=== PATIENT | male | born 1940 | race Caucasian/White ===

== ENCOUNTER → 2020-08-17 | Outpatient (CLI) | payer MEDICARE ==
[~2020-08-17] MED LIST: REGADENOSON 0.4 MG/5 ML SYRINGE ONE
== END | disposition home or self-care (01) ==
LOC: CFH 12:01
PROVIDERS: ATTEND Internal Medicine Cardiovascular Disease
DX: I35.8 Other nonrheumatic aortic valve disorders (principal); I10 Essential (primary) hypertension; I25.10 Atherosclerotic heart disease of native coronary artery without angina pectoris; I25.89 Other forms of chronic ischemic heart disease; E78.5 Hyperlipidemia, unspecified; E11.9 Type 2 diabetes mellitus without complications
CPT/HCPCS: 78452; 93017; 93306; A9502; J2785

== ENCOUNTER 2021-06-23 14:15 | Outpatient (CLI) | payer MEDICARE ==
[2021-06-23] MEDS ORDERED: ATOR20TA37 PO (14:47)
[2021-06-23] MEDS ORDERED: METF10007 PO (14:47)
[2021-06-23] MEDS ORDERED: lisinopril/hctz PO (14:47)
== END 2021-06-23 23:59 | disposition home or self-care (01) ==
LOC: STAR 14:15
PROVIDERS: ATTEND Urology
DX: Z01.818 Encounter for other preprocedural examination (principal); N40.1 Benign prostatic hyperplasia with lower urinary tract symptoms; R94.31 Abnormal electrocardiogram [ECG] [EKG]
CPT/HCPCS: 93005

== ENCOUNTER 2021-06-29 11:35 | Inpatient (IN) | payer MEDICARE ==
[~2021-06-29] VITALS: Ht 185.4 cm; Wt 88.5 kg
[~2021-06-29 11:35] MED LIST changes: +ATOR20TA37 PO; +METF10007 PO; -REGADENOSON 0.4 MG/5 ML SYRINGE ONE; +lisinopril/hctz PO
[2021-06-29] MEDS ORDERED: CHLORHEXIDINE 15 ML UDC PO ONE (12:00)
[2021-06-29] MEDS ORDERED: LACTATED RINGERS 1,000 ML IV SCH (12:00)
[2021-06-29 12:58] LABS: ANION GAP 6 mmol/L (5-15); CALCIUM 9.2 mg/dL (8.5-10.1); CHLORIDE 96 mmol/L (98-107); CREATININE 0.97 mg/dL (0.7-1.3)
[2021-06-29] MEDS ORDERED: FENTANYL PF 100 MCG/2ML ONE ×4 (13:26→15:03)
[2021-06-29] MEDS ORDERED: EPHEDRINE 50 MG/ML, 1ML ONE ×2 (13:51)
[2021-06-29] MEDS ORDERED: ONDANSETRON 2MG/ML, 2ML ONE (13:51)
[2021-06-29] MEDS ORDERED: PROPOFOL 10 MG/ML, 20ML ONE (13:51)
[2021-06-29] MEDS ORDERED: DEXAMETHASONE 4 MG/ML, 1ML ONE (13:51)
[2021-06-29] MEDS ORDERED: CEFAZOLIN 1,000 MG ONE (13:51)
[2021-06-29] MEDS ORDERED: LABETALOL 5MG/ML, 20ML ONE (14:45)
[2021-06-29] MEDS: LABETALOL 5MG/ML, 20ML IV PRN ×3 (14:49→15:28)
[2021-06-29] MEDS ORDERED: HYDROmorphone 1 MG/ML, 1ML INJ IVPush PRN (15:00)
[2021-06-29] MEDS ORDERED: ONDANSETRON 2MG/ML, 2ML IVPush PRN (15:00)
[2021-06-29] MEDS ORDERED: ACETAMINOPHEN 325 MG TABLET PO PRN ×2 (15:00→18:00)
[2021-06-29] MEDS ORDERED: FENTANYL PF 100 MCG/2ML IV PRN (15:00)
[2021-06-29] MEDS ORDERED: EPHEDRINE 50 MG/ML, 1ML IVPush PRN (15:00)
[2021-06-29] MEDS ORDERED: LABETALOL 5MG/ML, 20ML IV PRN (15:00)
[2021-06-29] MEDS ORDERED: OXYcodone 5 MG/5 ML ORAL.SOL UDC PO PRN (15:00)
[2021-06-29] MEDS ORDERED: PROMETHAZINE 25 MG/ML, 1ML IVPush PRN (15:00)
[2021-06-29] MEDS ORDERED: OPIUM/BELLADONNA SUPP.RECT 16.2-30 MG ONE (15:14)
[2021-06-29] MEDS ORDERED: OPIUM/BELLADONNA SUPP.RECT 16.2-30 MG PR PRN ×2 (15:30→18:00)
[2021-06-29] MEDS ORDERED: hydrALAzine 20 MG/ML, 1ML ONE (15:32)
[2021-06-29] MEDS: hydrALAzine 20 MG/ML, 1ML IV PRN ×3 (15:42→16:08)
[2021-06-29] MEDS ORDERED: ONDANSETRON 2MG/ML, 2ML IV PRN (18:00)
[2021-06-29] MEDS ORDERED: HYDROcodone/APAP 5/325 TABLET PO PRN ×2 (18:00→22:00)
[2021-06-29] MEDS ORDERED: AMLODIPINE 5 MG TABLET PO ONE (19:00)
[2021-06-29] MEDS ORDERED: OXYBUTYNIN CHLORIDE 5 MG TABLET PO PRN (19:00)
[2021-06-29] MEDS ORDERED: PHENAZOPYRIDINE 200 MG TABLET PO PRN (19:00)
[2021-06-29 20:22] VITALS: BP 177/81
[2021-06-29] MEDS: ATORVASTATIN 20 MG TABLET PO SCH (21:00)
[2021-06-29] MEDS: CEFAZOLIN PMX 1GM/50ML 50 ML IV SCH (21:00)
[2021-06-29] MEDS: INSULIN REGULAR 100 UNITS/ML, 3ML VIAL SQ-INSULIN SCH (22:12)
[2021-06-30 00:05] VITALS: BP 132/75
[2021-06-30] MEDS: SODIUM CHLORIDE 0.9% 1,000 ML IV SCH ×2 (01:50→22:21)
[2021-06-30 03:55] VITALS: BP 161/82
[2021-06-30] MEDS: CEFAZOLIN PMX 1GM/50ML 50 ML IV SCH (05:08)
[2021-06-30 06:00] LABS: CHLORIDE 95 mmol/L (98-107)
[2021-06-30 06:05] LABS: ANION GAP 8 mmol/L (5-15); CALCIUM 9.3 mg/dL (8.5-10.1); CREATININE 0.87 mg/dL (0.7-1.3)
[2021-06-30 07:15] VITALS: BP 182/83
[2021-06-30] MEDS: INSULIN REGULAR 100 UNITS/ML, 3ML VIAL SQ-INSULIN SCH ×4 (07:22→20:41)
[2021-06-30] MEDS: LISINOPRIL 20 MG TABLET PO SCH (07:22)
[2021-06-30] MEDS: metFORMIN 500 MG TABLET PO SCH ×2 (07:23→16:51)
[2021-06-30] MEDS: HYDROCHLOROTHIAZIDE 12.5 MG CAPSULE PO SCH (07:33)
[2021-06-30 13:53] VITALS: BP 143/66
[2021-06-30 19:53] VITALS: BP 150/70
[2021-06-30] MEDS: ATORVASTATIN 20 MG TABLET PO SCH (20:35)
[2021-07-01 00:37] VITALS: BP 137/76
[2021-07-01] MEDS: INSULIN REGULAR 100 UNITS/ML, 3ML VIAL SQ-INSULIN SCH ×4 (06:27→20:54)
[2021-07-01 07:10] VITALS: BP 164/80
[2021-07-01] MEDS: metFORMIN 500 MG TABLET PO SCH ×2 (08:24→17:00)
[2021-07-01] MEDS: HYDROCHLOROTHIAZIDE 12.5 MG CAPSULE PO SCH (08:25)
[2021-07-01] MEDS: LISINOPRIL 20 MG TABLET PO SCH (08:25)
[2021-07-01 12:53] VITALS: BP 131/75
[2021-07-01] MEDS ORDERED: CHLORHEXIDINE 15 ML UDC ONE (13:56)
[2021-07-01] MEDS ORDERED: FENTANYL PF 100 MCG/2ML ONE (14:24)
[2021-07-01] MEDS ORDERED: CHLORHEXIDINE 15 ML UDC PO ONE (14:30)
[2021-07-01] MEDS ORDERED: HYDROmorphone 1 MG/ML, 1ML INJ IVPush PRN (15:00)
[2021-07-01] MEDS ORDERED: PROMETHAZINE 25 MG SUPP PR PRN (15:00)
[2021-07-01] MEDS ORDERED: FENTANYL PF 100 MCG/2ML IV PRN (15:00)
[2021-07-01] MEDS ORDERED: METOPROLOL 1 MG/ML, 5ML IV PRN ×3 (15:00→15:55)
[2021-07-01] MEDS ORDERED: hydrALAzine 20 MG/ML, 1ML IV PRN (15:00)
[2021-07-01] MEDS ORDERED: ACETAMINOPHEN 325 MG TABLET PO PRN (15:00)
[2021-07-01] MEDS ORDERED: ONDANSETRON 2MG/ML, 2ML IVPush PRN (15:00)
[2021-07-01] MEDS ORDERED: PROMETHAZINE 25 MG/ML, 1ML IVPush PRN (15:00)
[2021-07-01] MEDS ORDERED: OXYcodone 5 MG/5 ML ORAL.SOL UDC PO PRN (15:00)
[2021-07-01] MEDS ORDERED: LABETALOL 5MG/ML, 20ML IV PRN (15:00)
[2021-07-01] MEDS ORDERED: OPIUM/BELLADONNA SUPP.RECT 16.2-30 MG ONE (15:29)
[2021-07-01] MEDS ORDERED: OPIUM/BELLADONNA SUPP.RECT 16.2-30 MG PR PRN ×2 (15:30)
[2021-07-01] MEDS ORDERED: LABETALOL 5MG/ML, 20ML ONE (15:47)
[2021-07-01] MEDS: LABETALOL 5MG/ML, 20ML IV PRN (15:56)
[2021-07-01 20:16] VITALS: BP 123/60
[2021-07-01] MEDS: ATORVASTATIN 20 MG TABLET PO SCH (20:34)
[2021-07-01] MEDS: SODIUM CHLORIDE 0.9% 1,000 ML IV SCH (22:08)
[2021-07-02 00:38] VITALS: BP 106/66
[2021-07-02 04:08] VITALS: BP 122/74
[2021-07-02 07:10] VITALS: BP 162/92
[2021-07-02] MEDS: HYDROCHLOROTHIAZIDE 12.5 MG CAPSULE PO SCH (08:19)
[2021-07-02] MEDS: metFORMIN 500 MG TABLET PO SCH (08:19)
[2021-07-02] MEDS: INSULIN REGULAR 100 UNITS/ML, 3ML VIAL SQ-INSULIN SCH ×2 (08:19→11:09)
[2021-07-02] MEDS: LISINOPRIL 20 MG TABLET PO SCH (08:20)
[2021-07-02 09:18] VITALS: BP 128/64
[2021-07-02 12:19] VITALS: BP 132/68
== END 2021-07-02 13:07 | disposition home or self-care (01) | DRG 713 ==
LOC: OUT 11:35 → 4NE 16:28 → OUT 20:39 → 4NE 20:40 → OBSVTOIN 07-01 08:42
PROVIDERS: ADMIT Urology; ATTEND Urology
PROC: 0VB08ZZ Excision of Prostate, Via Natural or Artificial Opening Endoscopic (ICD-10-PCS; principal; 2021-06-29 14:00)
PROC: 0V508ZZ Destruction of Prostate, Via Natural or Artificial Opening Endoscopic (ICD-10-PCS; 2021-07-01)
PROC: 0TCB8ZZ Extirpation of Matter from Bladder, Via Natural or Artificial Opening Endoscopic (ICD-10-PCS; 2021-07-01)
DX: N40.1 Benign prostatic hyperplasia with lower urinary tract symptoms (principal); D62 Acute posthemorrhagic anemia; R31.0 Gross hematuria
CPT/HCPCS: 36415; 80048; 82962; 85014; 85018; 88305; G0378; J0690; J1100; J1815; J2405; J2704; J3010; J0360; J7030; J7120